=== PATIENT | male | born 2000 | race Caucasian/White ===

== ENCOUNTER 2022-11-14 07:55 | Emergency (ER) | payer SELFPAY ==
[2022-11-14 07:56] VITALS: BP 149/81; PULSE 77; RESP 18; TEMP 36.6; O2SAT 100; BMI 34.2
--- NOTE | 2022-11-14 08:12 | EX.ED.DYSGE1 ---
HPI History of Present Illness Chief Complaint: Abd Pain Narrative Narrative: Presents with epigastric pain for 3 days it is worse in the morning when he wakes up and feels burning in his throat. It is better throughout the day. He has no right upper quadrant pain. He has no nausea vomiting or diarrhea. No lower abdominal pain. No fever or chills. The pain does not radiate to his back. PFSH PFSH Medical History no medical history Home Medications famotidine 40 mg tablet (Pepcid) 40 mg PO DAILY #10 tabs 11/14/22 [Rx Last Taken Unknown] omeprazole 40 mg capsule,delayed release 40 mg PO DAILY #30 caps 11/14/22 [Rx Last Taken Unknown] Allergy/AdvReac Type Severity Reaction Status Date / Time No Known Allergies Allergy Verified 11/14/22 07:55 Family History no significant family his Surgical History no surgical history Social History Smoking Status: Never smoker ROS ROS ED ROS Narrative Past medical history: None Medications: Reviewed Social history: No recent alcohol Review of systems: All systems negative except as indicated General: No fever ENT: No congestion Cardiovascular: No chest pain Respiratory: No shortness of breath or cough Gastrointestinal: Epigastric pain as in HPI Genitourinary: No dysuria Musculoskeletal: Denies myalgias no difficulty with ambulation Skin: No rash EXAM Physical Exam Narrative Exam Narrative: Physical exam General: Patient appears comfortable he does not appear in any distress Head: Normocephalic, Atraumatic Eyes: Conjunctiva not pale, no scleral icterus ENT: Moist mucous membranes Neck: Supple, Nontender, No lymphadenopathy Cardiovascular: Regular rate, Regular rhythm Respiratory: No distress, CTA bilaterally Abdomen: Soft, minimal epigastric pain. He has no right upper quadrant pain, he has negative Armijo's. He has no lower abdominal pain, no guarding or rebound, quite benign abdominal exam. Back: Nontender, Normal Inspection. Negative for: CVA tenderness Extremities: Nontender, No edema Skin: Normal color, No rash Const Vital Signs: 11/14/22 07:56 Temperature 97.8 F Temperature Source Temporal Pulse Rate 77 Respiratory Rate 18 Blood Pressure 149/81 H Blood Pressure Mean 103 Pulse Ox 100 Oxygen Delivery Method Room Air MDM MDM MDM Narrative Medical decision making narrative: Patient has epigastric pain. I thought about pancreatitis but the pain does not radiate to his back, I thought about gallbladder disease but he does not have significant right upper quadrant pain and he is negative Armijo's. Also he improved with the GI cocktail. He likely has gastritis, he may have an ulcer although initially we will treat the same, he will be discharged with a proton pump inhibitor. I thought about blood work including CBC CMP and lipase but again as above I do not believe the patient needs blood work he is young he is healthy his vitals are normal and he improved with a GI cocktail. Discharge Plan Triage Chief Complaint: Abd Pain ED Provider: Carlitos Silverman Dx/Rx/DC Orders Clinical Impression: Gastritis, Acute epigastric pain Instructions: ED Gastritis (Adult) Prescriptions: New famotidine [Pepcid] 40 mg tablet 40 mg PO DAILY Qty: 10 0RF omeprazole 40 mg capsule,delayed release(DR/EC) 40 mg PO DAILY Qty: 30 0RF Primary Care Provider: Care Physician,No Primary Referrals: Merline Oneil MD [Non-Staff] - 3-5 Days Disposition Disposition: Home, Self Care
[2022-11-14] MEDS: Mag Hydrox/Al Hydrox/Simeth 30 ML UDC PO (08:21)
== END 2022-11-14 09:01 | disposition home or self-care (01) ==
PROVIDERS: Emergency Provider Emergency Medicine; Visit Provider Emergency Medicine
DX: K29.70 Gastritis, unspecified, without bleeding (principal); R10.13 Epigastric pain
CPT/HCPCS: 99283